=== PATIENT | male | born 1995 | race Caucasian/White ===

== ENCOUNTER 2019-05-29 11:09 | Emergency (ER) | payer OTHER, BC ==
[~2019-05-29] VITALS: Ht 190.5 cm; Wt 81.8 kg
[2019-05-29 11:16] VITALS: Ht 190.5 cm; Wt 81.8 kg
[2019-05-29] MEDS ORDERED: CYCLOBENZAPRINE10 MG PO (11:36)
[2019-05-29 12:44] VITALS: BP 111/66
== END 2019-05-29 12:45 | disposition home or self-care (01) ==
LOC: D.ER 11:09
DX: R51 Headache (principal); M54.5 Low back pain; M54.2 Cervicalgia; V29.49XA Motorcycle driver injured in collision with other motor vehicles in traffic accident, initial encounter; Y93.9 Activity, unspecified; Y92.9 Unspecified place or not applicable